=== PATIENT | female | born 1970 | race Caucasian/White ===

== ENCOUNTER → 2020-06-02 | Outpatient (CLI) | payer OTHER, SELFPAY | END | disposition home or self-care (01) | LOC: LABSPEC 06-04 12:42 | PROVIDERS: Visit Provider Internal Medicine | DX: Z20.828 Contact with and (suspected) exposure to other viral communicable diseases (principal) | CPT/HCPCS: 87635; U0003 ==

== ENCOUNTER 2020-06-27 08:13 | Day surgery (SDC) | payer OTHER, SELFPAY ==
[2020-06-27] VITALS (7 sets, daily range): BP systolic 85–119; BP diastolic 43–73; PULSE 70–87; RESP 16–17; TEMP 36.3–37.2; O2SAT 95–100
--- NOTE | 2020-06-27 | APP_PTH ---
PATIENT: ALEYDA GILBERT [place] [facility] [place][id number] AGE/SX: 49/F ROOM: RE06/27/[address]: Dr. Lyudmila Urban MD : 1970 BED: DIS: 06/27/2020 SPEC #: [id number] RECD: 06/27/20 15:22 STATUS: RIVKA REQ #: [id number] DRU: 06/27/20 00:[address]: Lyudmila Urban DEPT: SURGICAL PATHOLOGY RECD BY: Nuno Brennan ENTERED: 06/30/20 08:04 SP TYPE: APPENDIX OTHR DR: Dr. Michelle Ware, DO Tissues: Appendix, NOS Procedures: Surgery Specimen Level III HEADER OPERATION: Laparoscopic appendectomy PRE-OP DIAGNOSIS: Rule out right lower quadrant abdominal pain and leukocytosis TISSUE SUBMITTED: Appendix MICROSCOPIC DIAGNOSIS Appendix, appendectomy: Fecal impaction. See comment. AM:donovan 07/01/2020 COMMENT There is no evidence of acute appendicitis. Clinical correlation is suggested. MICROSCOPIC DESCRIPTION Slides are reviewed. GROSS DESCRIPTION Received in fixative is one container labeled with the patient's name and designated appendix. The specimen consists of an appendix measuring 3.5 cm in length and up to 0.8 cm in diameter. No gross perforations are evident. Serial sections reveal a patent lumen with fecal material. No mass lesion is identified. The specimen is serially sectioned and totally submitted in one cassette. / AM:donovan 06/30/20 TC:5 CPT: 10303
--- NOTE | 2020-06-27 09:04 | ED.DCSUM_ITS ---
History of Present Illness Chief Complaint: Abd Pain Informant: Patient Narrative: 49-year-old female presenting with right flank pain. This started at 430 this morning. She states it was sharp and intermittent but is now constant. She has associated nausea. She has not vomited. She denies urinary complaints or constipation/diarrhea. She states he has no medical problems. She is not had fever or chills. Past Medical History - Allergies and Home Meds Allergies/Adverse Reactions: Allergies No Known Allergies Allergy (Verified 06/27/20 08:13) Prior records reviewed: Yes Past Medical History: None Surgical History: noncontributory Lives: Spouse/ Significant Other Smoking Status: Never smoker Alcohol: None Drugs: None Review of Systems General: Denies: Chills, Fever, Sweats Eyes: Denies: Visual changes - bilaterally, Diplopia ENT: Denies: Rhinorrhea, Sore throat Cardiovascular: Denies: Chest pain, Palpitations Respiratory: Denies: Dyspnea, Cough, Dyspnea on exertion Gastrointestinal: Reports: Abdominal pain, Nausea. Denies: Vomiting, Diarrhea, Constipation, Melena Genitourinary: Denies: Dysuria, Hematuria Musculoskeletal: Denies: Back pain, Extremity Pain Skin: Denies: Rash, Wounds Neurological: Denies: Headache, Weakness, Numbness Psych: Denies: Depression, Anxiety, Suicidal thoughts, Suicidal ideations, -, - Physical Exam Vital Signs/Narrative: Vital Signs Temp Pulse Resp BP Pulse Ox 06/27/20 08:14 97.4 F L 87 16 119/73 100 Inital Vital Signs reviewed: Yes General: Well nourished, No Acute Distress Eyes: Negative for: Perrl, EOMI ENT: Moist mucous membranes, Sinus tenderness Cardiovascular: Regular rate, Regular rhythm Respiratory: No distress, CTA bilaterally Back: CVA tenderness - Right. Negative for: Spinal tenderness Extremities: Negative for: Nontender, No edema Skin: Negative for: Normal color, No rash Neurological: Alert, Oriented x3, Cranial nerves II-XII grossly intact Psychological: Normal affect, Normal Mood Diagnostic/Tx/Re-eval Clinical Impression(s) from Imaging Studies Abdomen/Pelvis CT 06/27/20 09:42 IMPRESSION: Possible pelvic congestion syndrome. Electronically Signed: Gabriel Stone MD at 10:37 EST Tel , Service support , Laboratory Data 06/27/20 06/27/20 06/27/20 08:45 09:00 09:00 WBC 14.2 H RBC 4.26 Hgb 13.4 Hct 41.5 MCV 97.4 MCH 31.5 MCHC 32.3 RDW Std Deviation 47.4 H RDW Coeff of Virgie 13.2 Plt Count 246 MPV 9.7 Immature Gran % (Auto) 0.300 Neut % (Auto) 92.5 H Lymph % (Auto) 4.7 L [place] % (Auto) 2.3 Eos % (Auto) 0.1 Baso % (Auto) 0.1 Absolute Neuts (auto) 13.1 H Absolute Lymphs (auto) 0.67 L Nucleated RBC % 0 Sodium 142 Potassium 4.0 Chloride 107 Carbon Dioxide 29.0 Anion Gap 6 BUN 15 Creatinine 0.58 Estim Creat Clear Calc 80.66 Est GFR (MDRD) Af Amer 141 Est GFR (MDRD) Non-Af 117 BUN/Creatinine Ratio 25.8 H Glucose 87 Calcium 8.8 Total Bilirubin 0.60 AST 27 ALT 24 Alkaline Phosphatase 76 Total Protein 6.5 Albumin 3.8 Globulin 2.7 Albumin/Globulin Ratio 1.4 Lipase 105 Urine Color Yellow Urine Clarity Clear Urine pH 7.0 Ur Specific [place] 1.015 Urine Protein Negative Urine Glucose (UA) Normal Urine Ketones Negative Urine Occult Blood Negative Urine Nitrite Negative Urine Bilirubin Negative Urine Urobilinogen Normal Ur Leukocyte Esterase Negative Urine RBC 0 SEEN Urine WBC 0 SEEN Ur Squamous Epith Cells 0-5 SEEN Urine Bacteria 0 SEEN Urine Mucus 0 SEEN Urine Test Negative - Medical Decision Making 49-year-old female presenting with abdominal pain in the right lower quadrant. On exam she does have tenderness over McBurney's point. Urinalysis is obtained and does not show any hematuria. Patient is not having any urinary pelvic symptoms. Patient had lab work which shows a 14,000 white count otherwise renal function electrolytes are normal. LFTs are normal. Lipase is negative. Patient had CT of the abdomen pelvis with IV contrast which did not identify the appendix. Clinically I felt she had appendicitis. I discussed this with Dr. Urban, and evaluated the patient and she felt she had appendicitis as well. Patient was counseled on this and is amenable to appendectomy. Patient given IV Zofran and morphine for pain. She is given IV Zosyn. Her rapid Covid is negative. Patient had EKG which shows a sinus rhythm at 82 bpm without signs of ischemic change or dysrhythmia as interpreted by myself. Patient is admitted for appendectomy to Dr. Urban. Impression: 1. Acute appendicitis ED Disposition - Plan for ED Patient: Disposition: Acute Care Hospital [facility]
[2020-06-27 09:14] LABS: Bacteria 0 SEEN /hpf (None Seen); Mucous, Urine 0 SEEN /hpf (<or=2+); Red Blood Cells-Urine 0 SEEN /hpf (0-5); White Blood Cells 0 SEEN /hpf (0-5)
[2020-06-27 09:16] LABS: Absolute Lymphocyte Count 0.67 X10^3/uL (0.83-4.51); Absolute Neutrophil Count 13.1 X10^3/uL (2.0-7.7); Basophil# 0.02 X10^3/uL; Basophil% 0.1 % (0-1); Eosinophil# 0.01 X10^3/uL; Eosinophils% 0.1 % (0-5); Hematocrit 41.5 % (37-47); Hemoglobin 13.4 g/dL (12.0-15.0); Lymphocyte # 0.67 X10^3/ul (4.0); Lymphocyte % 4.7 % (19-41); Mean Corp Hgb Conc 32.3 g/dL (32-36); Mean Corpuscular Hgb 31.5 pg (27.0-32.0); Mean Corpuscular Volume 97.4 fL (81-99); Mean Platelet Vol. 9.7 fl (6.2-12.0); Monocyte# 0.33 X10^3/uL; Monocyte% 2.3 % (0-10); NRBC Flagged by Analyzer 0 % (0-5); Neutrophil # 13.12 X10^3/uL (2.7-7.7); Neutrophil % 92.5 % (47-70); Platelet Count 246 K/mm3 (150-450); RBC Distribution Width CV 13.2 % (11.6-14.6); RBC Distribution Width SD 47.4 fl (35.1-43.9); Red Blood Count 4.26 M/mm3 (4.2-5.4); White Blood Count 14.2 K/mm3 (4.4-11.0)
[2020-06-27 09:17] LABS: Color, Urine Yellow (Yellow); Glucose, Dipstick Normal (Normal); Ketone-Dipstick Negative (Negative); Leukocyte Esterase-Dipstick Negative /ul (Negative); Nitrite-Dipstick Negative (Negative); Occult Blood-Urine Negative /ul (Negative); Protein-Dipstick Negative (Negative); Specific Gravity, Urine 1.015 (1.002-1.030); Urine Bilirubin Dipstick Negative (Negative); Urine Clarity Clear (Clear); Urine Urobilinogen Normal (Normal)
[2020-06-27] MEDS: 0.9% Normal Saline 1,000 ML 1000 ML IV (09:19)
[2020-06-27 09:23] LABS: Internal QC Validated? YES +Cl - CLEAR BKGD; Pregnancy, Urine Negative Negative; Squamous Epithelial Cells - UA 0-5 SEEN /hpf (5-10)
[2020-06-27 09:32] LABS: ALB/GLOB Ratio 1.4 RATIO (0.9-2.4); AST(SGOT) 27 U/L (15-37); Alanine Aminotransfer ALT/SGPT 24 U/L (13-56); Albumin, Serum 3.8 g/dL (3.2-5.0); Alkaline Phosphatase 76 U/L (45-117); Anion Gap 6 (5-15); BUN 15 mg/dL (7-18); BUN/Creat Ratio 25.8 RATIO (10-20); Calcium,Total 8.8 mg/dL (8.5-10.1); Chloride 107 mmol/L (98-107); Creatinine, Serum 0.58 mg/dL (0.55-1.02); EST Glomerular Filtration Rate 117 mL/min (>60); Est Glom Filt Rate - Afr Amer 141 mL/min (>60); Estimated Creatinine Clearance 80.66 ml/min; Globulin 2.7 g/dL (2.2-4.2); Glucose 87 mg/dL (74-106); Lipase 105 U/L (73-393); Protein, Total 6.5 g/dL (6.4-8.2); Sodium Level 142 mmol/L (136-145)
--- NOTE | 2020-06-27 09:42 | CT_ITS ---
STUDY: CT ABDOMEN AND PELVIS WITH CONTRAST REASON FOR EXAM: Female, 49 years old. Right sided abdominal pain RADIATION DOSAGE (If Supplied By Facility): CTDIvol = ( 5.78 ) mGy, DLP = ( 228.93 ) mGycm TECHNIQUE: Transaxial images were obtained from the dome of the diaphragm to the symphysis pubis without oral contrast. IV 100mL Isovue-300 was administered. Sagittal and coronal images were reconstructed. Individualized dose optimization techniques were used for this CT. COMPARISON: None. FINDINGS: The visualized lung bases are unremarkable. The visualized portions of the heart are within normal limits. Normal liver. Normal gallbladder and extrahepatic biliary system. Normal spleen. Normal pancreas. Normal bilateral adrenal glands. Normal right kidney. Normal left kidney. Normal visualized stomach. Normal small intestine. Normal colon. There is non-visualization of the appendix. Normal abdominal aorta. Normal inferior vena cava. Normal retroperitoneum. Normal urinary bladder. Prominent left ovarian vein and parametrial veins which can be seen in pelvic congestion syndrome. Normal abdominal wall. Normal osseous structures. CT/Abdomen/Pelvis W IV Cont ONLY IMPRESSION: Possible pelvic congestion syndrome. Electronically Signed: Gabriel Stone MD at 10:37 EST Tel , Service support ,
[2020-06-27] MEDS: Ondansetron 4 MG/2 ML Vial IV (11:15)
[2020-06-27] MEDS: Morphine 4 MG/ML Syringe IV (11:15)
--- NOTE | 2020-06-27 12:22 | EKG12_ITS ---
Test Reason : PRE OP Blood Pressure : / mmHG Vent. Rate : 082 BPM Atrial Rate : 082 BPM P-R Int : 126 ms QRS Dur : 086 ms QT Int : 392 ms P-R-T Axes : 023 -22 027 degrees QTc Int : 457 ms Normal sinus rhythm Normal ECG Confirmed by AVERY SIMPSON, YURI ([id number]), mapping editor PAULINA BULL ([id number]) on 06/30/2020 10:32:12 A M Referred By: CLAYTON Confirmed By:YAMILE VARELA MD
[2020-06-27] MEDS: 0.9% Normal Saline 1,000 ML 999 ML IV (12:29)
--- NOTE | 2020-06-27 13:01 | HP.PCM_ITS ---
History and Physical Date of Admission: 06/27/20 Chief Complaint: abdominal pain History of Present Illness: 49 y/o otherwise healthy WF who presents with sudden onset of RLQ abdominal pain that awoke her from sleep at 4:30 this morning. She has some nausea, but denies emesis. Pain has persisted, presently at 6 out of 10 on scale of 1 - 10 with 10 being the worst. With movement this increases to 8 out of 10. She denies previous history of such abdominal pain. She denies constipation or diarrhea. She presented to [facility] with findings of elevated WBC of 14.2K with left shift of differential. Non contrast CT scan obtained which has non visualization of appendix, initially ordered for r/o kidney stones. Past Medical History: denies major medical illnesses Past Surgical History: csections Medications: none chronic Allergies: Has no known drug allergies Social history: TOB use denies Review of Systems: General - denies fevers, denies weight loss, denies anorexia Cardiovascular denies chest pain, denies history of heart attack Pulmonary denies shortness of breath, denies coughing up blood, had remote history of pneumonia - hospitalized Gastrointestinal as per HPI, denies chronic constipation, denies chronic diarrhea, denies history of peptic ulcers, denies swallowing problems Neurological denies numbness/weakness of extremities, denies seizures, denies history of stroke Genitourinary denies burning with urination, denies blood in urine Hematological denies spontaneous/prolonged bleeding Skin denies open non healing wounds Musculoskeletal denies history of fractures, denies arthritis Endocrine denies diabetes, denies history of thyroid problems Psychological denies hallucinations Physical examination: Vital signs Temp 97.4F BP 102/58 RR 16 General WD/WN WF in no apparent distress, alert and oriented, not septic appearing HEENT Normocephalic. EOM intact with sclera clear and no icterus noted. Neck is supple with no jugular venous distention noted. Trachea is midline. Lungs normal respiratory excusion, no adventitial lungs sounds noted No labored breathing noted, such as retractions. No cough heard. Heart normal heart sounds, regular. Abdomen soft but tender in the RLQ with positive Rovsing's sign and rebound. decreased bowel sounds, no masses noted Extremities no pitting edema noted. Genitourinary/Rectal deferred Skin normal skin integrity. Neurological no focal deficits noted Psychological normal affect, patient is calm and appropriate Impression: right lower quadrant abdominal pain Leukocytosis Discussion/Plan: I have discussed the above with the patient. By history and physical examination, IMO, the patient has appendicitis. I have offered the patient the procedure of laparoscopic appendectomy. I have explained the procedure to the patient. I have counseled the patient as to the risks of the procedure, including but not limited to: infection, bleeding, injury to any blood vessels/nerves, scar tissue, injury to any intrabdominal organs, injury to kidney/ureters, injury to bowel/bladder, intraabdominal abscess/bleeding, hernias at incisional sites, wound infections, possible open procedure, complications of anesthesia, postoperative pneumonia/cardiac problems/blood clots etc. the patient understands. I have offered alternatives of - admission with observation versus repeat CT scan with contrast The patient was offered a surgery/procedure. The provider and patient have discussed in detail the risk of exposure to and/or potential harm posed by the COVID-19 virus with having a surgery/procedure at this time versus the risk of delaying the surgery/procedure. It is not possible to know either the risk of delaying the surgery or procedure or chance of getting an infection with perfect accuracy, but a joint decision was made between the patient and the provider to proceed at this time with the scheduled surgery/procedure. She wishes to proceed with laparoscopic appendectomy I have answered all questions to the patient?s satisfaction and the patient has no further questions.
[2020-06-27] MEDS: Bupiv/Epi 0.25% 30 ML Vial (14:30)
--- NOTE | 2020-06-27 15:10 | PCM.OPRPT ---
Report of Operation Date of Procedure: 06/27/20 Pre-Operative Diagnosis: RLQ abdominal pain, leukocytosis Post-Operative Diagnosis: RLQ abdominal pain, leukocytosis, peritonitis - localized Surgery/Procedure Performed:: laparoscopic appendectomy Description of Surgical Findings:: normal appearing appendix - not swollen or edematous, localized peritonitis (cloudy peritoneal fluid) in the pelvis Type of Anesthesia:: General Anesthesiologist: Murray Penn Specimen's removed: appendix Estimated Blood Loss (mL): < 5 ml Fluids Replaced: 900 ml RL Description of Procedure: After informed consent was obtained, the patient was brought into the Operating Room. Appropriate time out protocol was followed. The patient was placed in the supine position on the operating table. The patient was then placed under general anesthesia by the anesthesia provider. The patient?s abdomen was then prepped with a sterile surgical skin preparation and sterile surgical drapes were placed. The infraumbilical skin fold was grasped with penetrating towel clamps and the skin and subcutaneous tissues were infiltrated with 0.25% marcaine with epinephrine. A incision was then made with a 15 blade scalpel. A Veress needle was then inserted into the intraabdominal cavity and checked to be in the proper position with a normal saline drop test. A CO2 pneumoperitoneum was then created. Once this was achieved, the Veress needle was removed and a 5 mm trocar was placed in its stead. A 5 mm laparoscope was then inserted into the trocar. Careful examination of the intraabdominal contents was then done. There was no evidence of injury to any internal organs from placement of the Veress needle or the trocar. Under direct visualization, a 12mm suprapubic trocar and a 5mm left lower quadrant trocar was then placed into the intraabdominal cavity. The skin and subcutaneous tissues at these sites were first infiltrated with 0.25% marcaine with epinephrine. Attention was then directed to the right lower quadrant. The appendix was visualized. It appeared grossly normal with no erythema/injection/swelling noted, however there was cloudy peritoneal fluid noted in the pelvis with no obvious source. The mesentery of the appendix was taken down by cauterizing the tissue from the free edge to the base of the appendix using the Harmonic scalpel. Once the base of the appendix was freed of surrounding tissues, then the linear gastrointestinal stapling device was brought into the abdominal cavity via the 12mm port and placed across the base of the appendix. The stapling device was fired, thus stapling across the base of the appendix and transecting it simultaneously. There was no evidence of perforation of the appendix. The pelvic cavity was vigorously irrigated with normal saline and all irrigant was aspirated out. The appendix was placed in an Endobag and this was brought out through the suprapubic trocar. The appendix was forwarded to Pathology for analysis. The appendiceal stump was carefully examined. There was no evidence of any active bleeding or fecal leakage. The surrounding tissues were also examined and there was no evidence of any active bleeding or fecal/bile leakage. The small bowel was examined from the ileocecal valve to at least 2 feet proximally and there was no evidence of a Meckel's. The intraabdominal cavity was examined and there was no evidence of any further inflammation or tissue abnormality. The CO2 pneumoperitoneum was released and all trocars were removed intact. The suprapubic fascia was reapproximated with a figure-of-8 vicryl suture. All skin incisions were reapproximated with monocryl suture. Cavilon and steristrips were applied to reinforce skin closure and proper sterile dressings were placed. Sponge, needle, and instrument count were verified and correct at the time of skin closure. The patient was then extubated and brought to the Recovery Room in stable condition. - Complications none noted - Admit VTE Documentation VTE Present on Admission: Yes VTE Mechan Device Prophylaxis: SCD's
[2020-06-27] MEDS: Ketorolac 30 MG/ML Syringe IV (15:53)
--- NOTE | 2020-06-27 15:58 | PCM.DC.APPY ---
Discharge Diet: No Restrictions - avoid carbonated beverages for a couple of weeks Discharge Activity: Return to Normal Activity - avoid running for a couple of weeks, may walk rapidly, may use elliptical, May not drive while taking narcotic pain medications. Lifting Restrictions: no lifting greater than 20 pounds for two weeks Call your doctor if your incision/area has: Continuous Slow Oozing, Foul Smelling Discharge Additional Instructions: Recommended pain control regimen - May take 600 mg ibuprofen (Motrin) and then in 3-4 hours, may take 650 mg acetaminophen (Tylenol), then in 3-4 hours may take 600 mg ibuprofen, then in 3-4 hours may take 650 mg acetaminophen and so on for 2-3 days May take narcotic pain medication for pain that is not controlled by above and at night for comfort through the night Leave dressings in place May get dressings wet in shower - do not scrub in the area and pat dry Do not soak - no tub baths/swimming Avoid carbonated beverages for a couple of days as they may cause bloating which may cause you discomfort after abdominal surgery Please call for a follow up appointment at the office to be seen in 1-2 weeks for a date and time available at your convenience. Call . Medications to take at Discharge Amoxicillin/Potassium Clav [Augmentin 875-125 Tablet] 1 ea PO BID 10 Days #20 tab 06/27/20 Cholecalciferol (Vitamin D3) [Vitamin D3] 2,000 unit PO DAILY 06/27/20 Hydrocodone Bitart/Apap 5-325 [Mcgill 5MG-325MG] 1 tablet PO Q8H PRN PRN 5 Days #15 tablet 06/27/20 Allergies/Adverse Reactions: Allergies No Known Allergies Allergy (Verified 06/27/20 08:13) The following prescriptions were given: Amoxicillin/Potassium Clav [Augmentin 875-125 Tablet] 1 ea PO BID 10 Days #20 tab Transmission Status: Pending to [facility] Hydrocodone Bitart/Apap 5-325 [Mcgill 5MG-325MG] 1 tablet PO Q8H PRN PRN 5 Days #15 tablet PRN Reason: Pain Transmission Status: Sent to [facility] Primary Care Physician: [facility] Doctor,Out of [NON-STAFF] - Test Results: Test results from this visit will be discussed in further detail at your follow-up appointment, if applicable. Please Follow Up With: Lyudmila Urban MD
== END 2020-06-27 17:00 | disposition home or self-care (01) ==
LOC: ED 09:23 → MS3 13:39 → ED 13:47 → SDC 13:59 → ED 14:12 → MS3 14:15 → ACINP 06-30 07:47 → SDC 06-30 13:31
PROVIDERS: Emergency Provider Student in an Organized Health Care Education/Training Program; PCP Family Medicine; Visit Provider Surgery
PROC: 0DTJ4ZZ Resection of Appendix, Percutaneous Endoscopic Approach (ICD-10-PCS; CPT 44970; principal; 2020-06-27 13:55)
DX: K65.9 Peritonitis, unspecified (principal)
CPT/HCPCS: 44970; 74177; 80053; 81001; 81025; 83690; 85025; 87070; 87075; 87077; 87186; 87205; 87426; 88304; 93005; 99284; J7030; J7050; J7120; Q9967; A4216; J2405

== ENCOUNTER 2021-12-25 07:41 | Emergency (ER) | payer OTHER, SELFPAY ==
[2021-12-25 07:41] VITALS: BP 96/66; PULSE 87; RESP 16; TEMP 36.4; O2SAT 99; BMI 19.8
--- NOTE | 2021-12-25 08:03 | EDS_ITS ---
HPI HPI - GI History of Present Illness Chief Complaint: Abd Pain Informant: patient Abdominal Pain/Flank Pain Onset: Yesterday Context: Gradual Onset Timing: Continuous Quality: Dull Location: RLQ and LLQ Worsened by: Nothing Relieved by: Nothing Nausea/Vomiting/Emesis GI Symptom: Positive for Nausea; Negative for Vomiting Diarrhea/Melena/Hematochezia GI Symptom: Negative for Diarrhea, Melena or Hematochezia Associated Symptoms Associated Symptoms: Positive for Frequency; Negative for Dysuria or Hematuria Narrative Narrative: Patient presents with abdominal pain that began yesterday evening and became worse today. Patient states it came on gradually. Patient states it has been constant. Patient describes her pain as dull. Patient states it is mainly over the lower abdomen and radiates into her groin. Patient states nothing makes it worse and nothing makes it better. Patient admits to nausea but denies any vomiting. Patient denies any diarrhea, melena, or hematochezia. Patient admits to some urinary frequency but denies any dysuria or hematuria. Patient denies any abnormal vaginal bleeding or discharge. [facility] Medical History (Updated 12/25/21 @ 12:[address] Samuel Ang, ) Mitral valve prolapse Home Medications cholecalciferol (vitamin D3) 50 mcg (2,000 unit) capsule 2,000 unit PO DAILY 06/27/20 [History Last Taken Unknown] fexofenadine-pseudoephedrine ER 180 mg-240 mg tablet,ext.release 24 hr (Kathy- D 24 Hour) 1 tab PO DAILY 12/25/21 [History Last Taken Unknown] fluticasone propionate 50 mcg/actuation nasal spray,suspension 1 spray intranasal DAILY 12/25/21 [History Last Taken Unknown] hydrocodone-acetaminophen 5-325mg 5mg-325mg 1 tab PO Q6H PRN PRN Pain 3 days #10 TABLETS 12/25/21 [Rx Last Taken Unknown] sulfamethoxazole 800 mg-trimethoprim 160 mg tablet 1 tab PO BID #6 TABLETS 12/25/21 [Rx Last Taken Unknown] Allergy/AdvReac Type Severity Reaction Status Date / Time No Known Allergies Allergy Verified 12/25/21 07:44 Surgical History (Updated 12/25/21 @ 08:[address] Samuel Ang, ) History of appendectomy History of section Social History Smoking Status: Never smoker ROS ROS ED Constitutional Constitutional ED: Denies chills or fever(s) Eyes Eyes: Denies blurry vision or change in vision ENT ENT ED: Reports sore throat; Denies rhinorrhea Cardiovascular Cardiovascular: Denies chest pain or palpitations Respiratory/Chest Respiratory/Chest: Reports cough; Denies dyspnea Gastrointestinal Gastrointestinal: Reports abdominal pain and nausea; Denies vomiting Genitourinary Genitourinary ED: Reports urinary frequency; Denies dysuria or hematuria Musculoskeletal Musculoskeletal: Denies back pain or neck pain Integumentary Denies abscess or rash Neurologic Neurologic: Denies headache(s) or weakness Allergic/Immunologic Allergic/Immunologic ED: Denies mouth swelling or urticaria EXAM Physical Exam Const Vital Signs: 12/25/21 07:41 12/25/21 08:42 12/25/21 10:00 Temperature 97.5 F L Temperature Source Temporal Pulse Rate 87 81 72 Respiratory Rate 16 16 16 Blood Pressure 96/66 103/64 96/61 Blood Pressure Mean 76 77 72 Pulse Ox 99 99 100 Oxygen Delivery Method Room Air Room Air Room Air 12/25/21 12:31 Temperature Temperature Source Pulse Rate 75 Respiratory Rate 16 Blood Pressure 98/60 Blood Pressure Mean 72 Pulse Ox 99 Oxygen Delivery Method Room Air Positive well nourished and well developed General Appearance ED: well developed and NAD HEENT Reports moist mucous membranes Neck supple and no JVD Resp normal respiratory effort and clear to auscultation bilaterally Cardio regular rate, regular rhythm and no murmurs GI normal to inspection, nondistended, normoactive bowel sounds Palpation: soft and tender epigastric, LLQ, RLQ, LUQ, RUQ, periumbilical and suprapubic; Negative for guarding or rebound tenderness present Extremity normal to inspection General Extremety ED: Negative for edema or tenderness General Extremity: Negative for edema Neuro oriented x3, CN's II-XII intact bilaterally and no sensory deficits noted Sensorium / Orientation: alert Motor Exam: strength 5/5 throughout Psych mental status grossly normal Skin no rashes or lesions noted MDM MDM MDM Narrative Medical decision making narrative: Patient was given IV fluids, morphine, and Zofran. CBC shows a mild leukocytosis of 13.3. Comprehensive metabolic profile was within normal limits. Lipase was normal. Urinalysis shows a leukocyte esterases of 100 with 10-25 white blood cells and 1+ bacteria. CT scan of the abdomen pelvis was obtained. There is a enlarged uterine fibroid and a nabothian cyst on the cervix. There is mildly distended gallbladder and minimally dilated intrahepatic ducts. Pelvic ultrasound was recommended. This was interpreted by the radiologist and reviewed by myself. Pelvic ultrasound was obtained. There are uterine fibroids and a nabothian cyst on the cervix. This was interpreted by the radiologist and reviewed by myself. Patient was advised of her findings. Urine culture was ordered. Patient was given a dose of Bactrim here. Patient was given a prescription for Bactrim. Patient was instructed to follow-up with her primary care physician in 5 to 7 days. Patient understood and was agreeable with the plan. All questions were answered. Lab Data Labs: Laboratory Results - last 24 hr 12/25/21 12/25/21 12/25/21 08:25 08:30 08:30 WBC 13.3 H RBC 4.22 Hgb 13.6 Hct 41.7 MCV 98.8 MCH 32.2 H MCHC 32.6 RDW Std Deviation 48.2 H RDW Coeff of [place]gie 13.2 Plt Count 226 MPV 9.9 Immature Gran % (Auto) 0.700 Neut % (Auto) 93.1 H Lymph % (Auto) 2.8 L [place] % (Auto) 3.3 Eos % (Auto) 0.0 Baso % (Auto) 0.1 Absolute Neuts (auto) 12.4 H Absolute Lymphs (auto) 0.38 L Nucleated RBC % 0 Differential Comment SCANNED Sodium 139 Potassium 3.9 Chloride 103 Carbon Dioxide 31.0 Anion Gap 5 BUN 13 Creatinine 0.67 Estim Creat Clear Calc 67.58 Est GFR (MDRD) Af Amer 119 Est GFR (MDRD) Non-Af 98 BUN/Creatinine Ratio 19.3 Glucose 113 H Calcium 9.1 Total Bilirubin 0.50 AST 22 ALT 23 Alkaline Phosphatase 77 Total Protein 6.6 Albumin 3.6 Globulin 3.0 Albumin/Globulin Ratio 1.2 Lipase 106 Urine Color Yellow Urine Clarity Clear Urine pH 8.0 Ur Specific [place] 1.010 Urine Protein 15 H Urine Glucose (UA) Normal Urine Ketones Negative Urine Occult Blood Negative Urine Nitrite Negative Urine Bilirubin Negative Urine Urobilinogen Normal Ur Leukocyte Esterase 100 H Urine RBC 0 SEEN Urine WBC 10-25 SEEN Ur Squamous Epith Cells 0-5 SEEN Urine Bacteria 1+ Urine Mucus 2+ Radiography Diagnostic Testing: Clinical Impression(s) from Imaging Studies Abdomen/Pelvis CT 12/25/21 08:06 IMPRESSION: Findings suggestive of enlarged fibroid uterus with a possible degenerating fibroid in the right side of the body of the uterus. There is evidence of a nabothian cyst in the uterine cervix. Increased vascularity is seen in the pelvis. Correlation with a pelvic sonogram is recommended. Distended gallbladder. Minimally dilated central intrahepatic biliary ducts. Electronically Signed: Vince Ornelas MD at 10:11 EDT , Transvaginal US 12/25/21 10:20 IMPRESSION: Enlarged fibroid uterus. Fluid collection is seen within the cervix as described. Electronically Signed: Vince Ornelas MD at 12:11 EDT , Discharge Plan Triage Chief Complaint: Abd Pain ED Provider: Samuel Ang Dx/Rx/DC Orders Clinical Impression: Urinary tract infection, Uterine fibroid, Pelvic pain Instructions: ED Uterine Fibroids, ED Cystitis Female Adult Prescriptions: New hydrocodone-acetaminophen [hydrocodone-acetaminophen] 5-325 mg tablet 1 tab PO Q6H PRN PRN (Reason: Pain) 3 Days Qty: 10 0RF sulfamethoxazole-trimethoprim [sulfamethoxazole-trimethoprim] 800-160 mg tablet 1 tab PO BID Qty: 6 0RF No Action cholecalciferol (vitamin D3) 2,000 UNIT capsule 2,000 unit PO DAILY fluticasone propionate [Flonase] 50 mcg/actuation [place],Suspension 1 spray INTRANASAL DAILY Rx Instructions: administer into each nostril fexofenadine-pseudoephedrine [Kathy-D 24 Hour] 180-240 mg Tablet Extended Release 24 Hr 1 tab PO DAILY Primary Care Provider: Addie Elizabeth NP Referrals: Michelle Ware DO [Non-Staff] - 5-7 Days Disposition Disposition: Home, Self Care
--- NOTE | 2021-12-25 08:06 | CT_ITS ---
STUDY: CT ABDOMEN AND PELVIS WITH CONTRAST REASON FOR EXAM: Female, 51 years old. One day history of lower abdominal pain. RADIATION DOSAGE (If Supplied By Facility): CTDIvol = ( 8.65 ) mGy, DLP = ( 350.73 ) mGycm TECHNIQUE: Transaxial images were obtained from the dome of the diaphragm to the symphysis pubis with oral contrast. Oral and amp; IV Gastrografin and amp; 100mL Isovue-300 was administered. Sagittal and coronal images were reconstructed. Individualized dose optimization techniques were used for this CT. COMPARISON: Comparison is made with prior study of 06/27/2020. FINDINGS: Minimal degree of bibasilar atelectasis. The visualized portions of the heart are within normal limits. Minimally dilated central intrahepatic biliary ducts. There is a distended gallbladder. Normal spleen. Normal pancreas. Normal bilateral adrenal glands. Normal right kidney. Normal left kidney. Normal visualized stomach. Normal small intestine. Large amount of fecal material is seen in the right hemicolon. The patient is status post appendectomy. Normal abdominal aorta. Normal inferior vena cava. Normal retroperitoneum. Enlarged fibroid uterus. There is a 3.1 cm x 3.1 cm hypodense nodule in the right side of the uterus suggestive of a possible degenerating fibroid. Increased vascularity is seen in the pelvis. There is also evidence of a nabothian cyst in the uterine cervix. Normal abdominal wall. Normal osseous structures. CT/Abdomen/Pelvis WITH Contrast IMPRESSION: Findings suggestive of enlarged fibroid uterus with a possible degenerating fibroid in the right side of the body of the uterus. There is evidence of a nabothian cyst in the uterine cervix. Increased vascularity is seen in the pelvis. Correlation with a pelvic sonogram is recommended. Distended gallbladder. Minimally dilated central intrahepatic biliary ducts. Electronically Signed: Vince Ornelas MD at 10:11 EDT ,
[2021-12-25] MEDS: 0.9% Normal Saline 1,000 ML 1000 ML IV (08:33)
[2021-12-25] MEDS: Morphine 4 MG/ML Syringe IV (08:33)
[2021-12-25] MEDS: Ondansetron 4 MG/2 ML Vial IV (08:33)
[2021-12-25 08:42] VITALS: BP 103/64; PULSE 81; RESP 16; O2SAT 99
[2021-12-25 08:48] LABS: Red Blood Cells-Urine 0 SEEN /hpf (0-5)
[2021-12-25 08:50] LABS: Color, Urine Yellow (Yellow); Glucose, Dipstick Normal (Normal); Ketone-Dipstick Negative (Negative); Leukocyte Esterase-Dipstick 100 /ul (Negative); Nitrite-Dipstick Negative (Negative); Occult Blood-Urine Negative /ul (Negative); Protein-Dipstick 15 mg/dl (Negative); Urine Bilirubin Dipstick Negative (Negative); Urine Clarity Clear (Clear); Urine Urobilinogen Normal (Normal)
[2021-12-25 08:51] LABS: Absolute Lymphocyte Count 0.38 X10^3/uL (0.83-4.51); Absolute Neutrophil Count 12.4 X10^3/uL (2.0-7.7); Basophil# 0.02 X10^3/uL; Basophil% 0.1 % (0-1); Hematocrit 41.7 % (37-47); Hemoglobin 13.6 g/dL (12.0-15.0); Lymphocyte # 0.38 X10^3/ul (0.83-4.51); Lymphocyte % 2.8 % (19-41); Mean Corp Hgb Conc 32.6 g/dL (32-36); Mean Corpuscular Hgb 32.2 pg (27.0-32.0); Mean Corpuscular Volume 98.8 fL (81-99); Mean Platelet Vol. 9.9 fl (6.2-12.0); Monocyte# 0.44 X10^3/uL; Monocyte% 3.3 % (0-10); NRBC Flagged by Analyzer 0 % (0-5); Neutrophil # 12.41 X10^3/uL (2.7-7.7); Neutrophil % 93.1 % (47-70); POSITIVE DIFFERENTIAL YES; Platelet Count 226 K/mm3 (150-450); RBC Distribution Width CV 13.2 % (11.6-14.6); RBC Distribution Width SD 48.2 fl (35.1-43.9); Red Blood Count 4.22 M/mm3 (4.2-5.4); White Blood Count 13.3 K/mm3 (4.4-11.0)
[2021-12-25 08:54] LABS: Differential Indicated SCAN CRITERIA MET
[2021-12-25 08:56] LABS: Bacteria 1+ /hpf (None Seen); Mucous, Urine 2+ /hpf (<or=2+); Squamous Epithelial Cells - UA 0-5 SEEN /hpf (5-10); White Blood Cells 10-25 SEEN /hpf (0-5)
[2021-12-25 09:15] LABS: ALB/GLOB Ratio 1.2 RATIO (0.9-2.4); AST(SGOT) 22 U/L (15-37); Alanine Aminotransfer ALT/SGPT 23 U/L (13-56); Albumin, Serum 3.6 g/dL (3.2-5.0); Alkaline Phosphatase 77 U/L (45-117); Anion Gap 5 (5-15); BUN 13 mg/dL (7-18); BUN/Creat Ratio 19.3 RATIO (10-20); Calcium,Total 9.1 mg/dL (8.5-10.1); Chloride 103 mmol/L (98-107); Creatinine, Serum 0.67 mg/dL (0.55-1.02); EST Glomerular Filtration Rate 98 mL/min (>60); Est Glom Filt Rate - Afr Amer 119 mL/min (>60); Estimated Creatinine Clearance 67.58 ml/min; Glucose 113 mg/dL (74-106); Lipase 106 U/L (73-393); Potassium 3.9 mmol/L (3.5-5.1); Protein, Total 6.6 g/dL (6.4-8.2); Sodium Level 139 mmol/L (136-145)
[2021-12-25 09:17] LABS: Differential Comment SCANNED
[2021-12-25 10:00] VITALS: BP 96/61; PULSE 72; RESP 16; O2SAT 100
--- NOTE | 2021-12-25 10:20 | US_ITS ---
STUDY: ULTRASOUND OF THE FEMALE PELVIS - COMPLETE REASON FOR EXAM: Female, 51 years old. Pelvic pain-lower LMP: 12/05/2021 TECHNIQUE: 22 TECHNICAL QUALITY: Adequate. COMPARISON: Comparison is made with prior CT scan done earlier today. FINDINGS: The uterus is anteverted and is in a midline position. The uterus measures 10.6 cm x 6.5 cm x 6.1 cm. The fluid collection is seen within the cervix measuring 2.7 cm x 2.7 cm x 0.9 cm. Is also evidence of nabothian cysts. The endometrium measures 6 mm in thickness, and is hyperechoic. There is no demonstrated endometrial mass. There is an enlarged fibroid uterus. There is a 3.5 cm x 3.3 cm x 3.2 cm fibroid in the body of uterus. There is also evidence of a 2.5 cm x 3.1 cm a 2.9 cm fibroid in the fundal portion of the uterus. I.U.D. - The patient does not have an I.U.D. The right ovary is visualized. The right ovary measures 3.7 cm x 4.2 cm x 1.6 cm. There is no right ovarian cyst or ovarian mass. There is no visualized right adnexal mass or complex lesion. There is normal arterial and normal venous vascularity. The left ovary is visualized. The left ovary measures 4.3 cm x 3.8 cm x 2.6 cm. There is no left ovarian cyst or ovarian mass. There is no visualized left adnexal mass or complex lesion. There is normal arterial and normal venous vascularity. There is no fluid in the cul-de-sac. Prominent vascularity is seen in the adnexal regions. US/Transvaginal Non- IMPRESSION: Enlarged fibroid uterus. Fluid collection is seen within the cervix as described. Electronically Signed: Vince Ornelas MD at 12:11 EDT ,
[2021-12-25 12:31] VITALS: BP 98/60; PULSE 75; RESP 16; O2SAT 99
[2021-12-25] MEDS: Smz/Tmp Ds Tablet 1 TABLET PO (12:46)
[2021-12-25 12:47] VITALS: BP 98/60; PULSE 75; RESP 16; O2SAT 99
== END 2021-12-25 12:50 | disposition home or self-care (01) ==
PROVIDERS: Emergency Provider Emergency Medicine; PCP Nurse Practitioner Primary Care; Visit Provider Emergency Medicine
DX: N39.0 Urinary tract infection, site not specified (principal); D25.9 Leiomyoma of uterus, unspecified; R10.2 Pelvic and perineal pain; I34.1 Nonrheumatic mitral (valve) prolapse
CPT/HCPCS: 74177; 76830; 80053; 81001; 83690; 85025; 87086; 87088; 87186; 96361; 96374; 96375; 99284; J7030; Q9967; A4216; J2405